=== PATIENT | female | born 1970 | race American Indian/Alaskan Native ===

== ENCOUNTER 2016-11-21 17:03 | Emergency (ER) | payer OTHER, MEDICARE ==
[2016-11-21 17:37] VITALS: BP 162/91; PULSE 101; RESP 18; TEMP 98.1; O2SAT 100
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
== END 2016-11-21 18:08 | disposition home or self-care (01) ==
LOC: C.ER 17:03
DX: S16.1XXA Strain of muscle, fascia and tendon at neck level, initial encounter (principal); V44.6XXA Car passenger injured in collision with heavy transport vehicle or bus in traffic accident, initial encounter; Y92.410 Unspecified street and highway as the place of occurrence of the external cause